=== PATIENT | female | born 1995 | race Asian ===

== ENCOUNTER 2018-11-22 13:45 | Emergency (ER) | payer MEDICAID ==
[~2018-11-22] VITALS: Ht 160 cm; Wt 106.6 kg
[2018-11-22 15:45] VITALS: BP 123/80
--- NOTE | 2018-11-22 16:45 | NUR ---
PT AMB TO ER BED 11
--- NOTE | 2018-11-22 16:58 | NUR ---
PATIENT PRESENTS TO ED WITH C/O HACKING DRY COUGH >2 WKS, NASAL/CHEST CONGESTION, SOB, ANTERIOR CHEST WALL PAIN SHARP WITH COUGH----FATIGUE . DENIES N/V/D; SKIN IS PINK/WARM/DRY; AAOX4 WITH EVEN AND STEADY GAIT; LUNGS CLEAR BL; HR EVEN AND REGULAR; PATIENT STATES PAIN OF 6/10 AT THIS TIME; VSS; PATIENT POSITIONED FOR COMFORT; HOB ELEVATED; BEDRAILS UP X2; BED DOWN. ER MD MADE AWARE OF PT STATUS.
[2018-11-22] MEDS ORDERED: ALBUTEROL SULFATE/IPRATROPIU 3 ML SOL IH ONE ×2 (17:00→17:35)
[2018-11-22] MEDS ORDERED: DEXAMETHASONE 10 MG/ML VIAL IM ONE (17:35)
--- NOTE | 2018-11-22 17:50 | NUR ---
2nd breathing tx completed---pt admits breathing a easier and less of a cough heard. will continue to observe for any changes
[2018-11-22 18:06] VITALS: BP 121/87
--- NOTE | 2018-11-22 18:10 | NUR ---
Patient discharged with v/s stable. Written and verbal after care instructions given and explained. Patient alert, oriented and verbalized understanding of instructions. Ambulatory with steady gait. All questions addressed prior to discharge. ID band removed. Patient advised to follow up with PMD. Rx of medrol,albuterol,promethazine given. Patient educated on indication of medication including possible reaction and side effects. Opportunity to ask questions provided and answered.
== END 2018-11-22 18:10 | disposition home or self-care (01) ==
LOC: MED 13:45
DX: J45.901 Unspecified asthma with (acute) exacerbation (principal)
CPT/HCPCS: 81002; 81025; 94640; 96372; 99284; J1100; J7620

== ENCOUNTER 2019-01-22 14:58 | Emergency (ER) | payer MEDICAID ==
[~2019-01-22] VITALS: Ht 162.6 cm; Wt 100.7 kg
--- NOTE | 2019-01-22 15:00 | NUR ---
PT C/O SOB S/P DIAGNOSED WITH BRONCHITIS TODAY AT AND WAS SENT HERE FOR BREATHING TREATMENTS. ON EXAM PT IS TACHYPNEIC, WHEEZING ON EXPIRATION HEARD THROUGHOUT BILAT LUNG CRUZ, 96% ON RA. HX OF ASTHMA BUT DOESN'T TAKE MEDICATIONS REGULARLY. SINUS TACH ON MONITOR WITH NO ECTOPY. DENIES CP/NVD/PAIN AT THIS TIME. PLACED IN GOWN, BED LOCKED/LOW POSITION, WILL CONTINUE TO MONITOR CLOSELY.
[2019-01-22 15:01] VITALS: BP 124/74
--- NOTE | 2019-01-22 15:01 | NUR ---
PT TO ER BED 4
--- NOTE | 2019-01-22 15:05 | NUR ---
DR. CHARLES AT BEDSIDE
[2019-01-22] MEDS ORDERED: ALBUTEROL SULFATE/IPRATROPIU 3 ML SOL IH ONE ×2 (15:10→16:05)
--- NOTE | 2019-01-22 15:34 | NUR ---
ADMITTING DX: SOB HX: ASTHMA C/O SOB VERBALLY RESPONSIVE EDUCATION PROVIDED TO PATIENT WITH ACKNOWLEDGEMENT ON [facility] THERAPY RESPIRATORY DRUG AND PEAK FLOW METER FOREMENTIONED GIVEN ORDERED ENCOURAGED PATIENT FOR INTERMITTENT FOR DEEP BREATHING DURING THERAPY TOLERATED WELL WITHOUT INCIDENT PEAK FLOW: before 180 l/m after 200 l/m
[2019-01-22] MEDS ORDERED: methylPREDNISolone SS 125 MG in WATER STERILE 2 ML IM ONE (16:05)
--- NOTE | 2019-01-22 16:08 | NUR ---
FOLLOW UP [facility] THERAPY AND RESPRATORY DRUG GIVEN ORDERED ENCOURAGED PATIENT FOR INTERMITTENT DEEP BREATHING DURING THERAPY TOLERATED WELL WITHOUT INCIDENT PAEK FLOW METER: before 220 l/m after 270 l/m
[2019-01-22] MEDS ORDERED: ACETAMIN/CODEINE 120/12MG-5ML 5 ML UDC PO ONE (16:30)
[2019-01-22 17:04] VITALS: BP 129/75
--- NOTE | 2019-01-22 17:04 | NUR ---
Patient discharged with v/s stable. Written and verbal after care instructions given and explained. Patient alert, oriented and verbalized understanding of instructions. Ambulatory with steady gait. All questions addressed prior to discharge. ID band removed. Patient advised to follow up with PMD. Rx of GUAIATUSSIN, ALBUTEROL AEROSOL, PREDNISONE given. Patient educated on indication of medication including possible reaction and side effects. Opportunity to ask questions provided and answered.
== END 2019-01-22 17:04 | disposition home or self-care (01) ==
LOC: MED 14:58
DX: J45.901 Unspecified asthma with (acute) exacerbation (principal); J20.9 Acute bronchitis, unspecified; F17.210 Nicotine dependence, cigarettes, uncomplicated; Z71.6 Tobacco abuse counseling
CPT/HCPCS: 71045; 94640; 96372; 99284; J2930; J7620; Q0092

== ENCOUNTER 2019-03-21 22:18 | Emergency (ER) | payer MEDICAID ==
[~2019-03-21] VITALS: Ht 160 cm; Wt 95.3 kg
--- NOTE | 2019-03-21 22:22 | NUR ---
PT BIBA TO BED 07.
--- NOTE | 2019-03-21 22:22 | NUR ---
47/M BIBA FROM HOME, C/O SUDDEN ONSET ASTHMA EXACERBATION, X30 MINS. PT RECEIVED ALBUTEROL AND ATROVENT BREATHING TX WITH RELIEF. PT REPORTS COUGH ALL DAY, AND EPISODE OF VOMITING FROM COUGHING. DENIES FEVER. PT DENIES CP, SOB, N/V AT THIS TIME. PT ARRIVES TO ED, AOX4, SKIN NORMAL WARM AND DRY, SPO2 97% ON RA, RR 16 EVEN AND UNLABORED. LUNG SOUNDS WITH MILD WHEEZE BL. HR 120 EVEN AND TACHYCARDIA, ST ON MONITOR. DR FREEMAN MADE AWARE. HX ASTHMA RX NONCOMPLIANT
[2019-03-21 22:24] VITALS: BP 119/77
[2019-03-21] MEDS ORDERED: predniSONE 20 MG TAB PO ONE (22:25)
--- NOTE | 2019-03-21 23:15 | NUR ---
PT LAYING IN BED HIGH GODOY'S, SPO2 95% ON RA, RR 28 EVEN AND UNLABORED. DENIES SOB, REPORTS IMPROVEMENT IN SYMPTOMS. LUNG SOUNDS WITH MILD WHEEZING. DR FREEMAN MADE AWARE. ALL NEEDS MET.
--- NOTE | 2019-03-22 01:05 | NUR ---
DR FREEMAN AT BEDSIDE
--- NOTE | 2019-03-22 01:11 | NUR ---
PT LAYING IN BED, SPO2 95% ON RA, RR 16 EVEN AND UNLABORED. DENIES ANY PAIN. DENIES SOB. ALL NEEDS MET.
[2019-03-22 01:15] VITALS: BP 114/78
--- NOTE | 2019-03-22 01:16 | NUR ---
Patient discharged with v/s stable. Written and verbal after care instructions given and explained. Patient alert, oriented and verbalized understanding of instructions. Ambulatory with steady gait. All questions addressed prior to discharge. ID band removed. Patient advised to follow up with PMD. Rx of ALBUTEROLD INHALER, PREDNISONE given. Patient educated on indication of medication including possible reaction and side effects. Opportunity to ask questions provided and answered.
== END 2019-03-22 01:15 | disposition home or self-care (01) ==
LOC: MED 22:18
DX: J45.901 Unspecified asthma with (acute) exacerbation (principal)
CPT/HCPCS: 99283; J7512

== ENCOUNTER 2019-05-07 20:51 | Emergency (ER) | payer MEDICAID ==
[~2019-05-07] VITALS: Ht 160 cm; Wt 102.5 kg
[2019-05-07 20:55] VITALS: BP 137/86
--- NOTE | 2019-05-07 20:55 | NUR ---
TO BED # 10 AMBULATORY
--- NOTE | 2019-05-07 21:05 | NUR ---
23 YO F BIB SELF PRESENTS TO ED C/O SOB X 4 HOURS. PT STATES SHE HAS HX OF ASTHMA AND RAN OUT OF HER INHALER. ALSO C/O 8/10 CHEST DISCOMFORT. -- PT AWAKE, ALERT, CALM, COOPERATIVE. APPEARS UNCOMFORTABLE. ANSWERS QUESTIONS APPROPRIATELY. BEHAVIOR AGE APPROPRIATE. -- SKIN PINK, WARM, DRY. INCREASED WOB NOTED. SPO2: 92% ON RA. EXPIRATORY WHEEZING HEARD THROUGHOUT LUNG CRUZ. PMH-- ASTHMA
[2019-05-07] MEDS ORDERED: ALBUTEROL SULFATE/IPRATROPIU 3 ML SOL IH ONE (21:20)
[2019-05-07] MEDS ORDERED: methylPREDNISolone SS 125 MG/2 ML VIAL IM ONE (21:20)
--- NOTE | 2019-05-07 21:30 | NUR ---
SENIOR AUDITOR AT BEDSIDE. BREATHING TX IN PROGRESS.
--- NOTE | 2019-05-07 22:05 | NUR ---
PT STATES SHE FEELS MUCH BETTER. SKIN PINK, WARM, DRY. BREATHING EVEN, UNLABORED. SPO2 96% ON RA. DENIES PAIN AT THIS TIME.
[2019-05-07 22:10] VITALS: BP 135/81
--- NOTE | 2019-05-07 22:10 | NUR ---
Patient discharged with v/s stable. Written and verbal after care instructions given and explained. Patient alert, oriented and verbalized understanding of instructions. Ambulatory with steady gait. All questions addressed prior to discharge. ID band removed. Patient advised to follow up with PMD. Rx of Prednisone and Albuterol given. Patient educated on indication of medication including possible reaction and side effects. Opportunity to ask questions provided and answered.
== END 2019-05-07 22:10 | disposition home or self-care (01) ==
LOC: MED 20:51
DX: J45.901 Unspecified asthma with (acute) exacerbation (principal)
CPT/HCPCS: 96372; 99283; J2930; J7620; 94640

== ENCOUNTER 2019-06-28 01:37 | Emergency (ER) | payer MEDICAID ==
[~2019-06-28] VITALS: Ht 162.6 cm; Wt 99.8 kg
[2019-06-28 01:39] VITALS: BP 113/96
--- NOTE | 2019-06-28 01:40 | NUR ---
PT AMBULATED TO ER BED 5
[2019-06-28] MEDS ORDERED: ALBUTEROL SULFATE/IPRATROPIU 3 ML SOL IH ONE (01:45)
[2019-06-28] MEDS ORDERED: methylPREDNISolone SS 125 MG/2 ML VIAL IVP ONE (01:45)
[2019-06-28] MEDS ORDERED: MAG SULF 2000 MG/WATER PREMIX 50 ML IV ONE (01:45)
--- NOTE | 2019-06-28 01:45 | NUR ---
23Y FEMALE, PRESENTED TO ED C/O SOB WITH CHEST TIGHTNESS THAT STARTED ABOUT 45MIN AGO. PT REPORTED RUNNING OUT OF ALBUTEROL INHALER, PT WITH HX OF ASTHMA. PT AAOX4, RR EVEN NOTED BILATERAL LUNG WHEEZING, GCS 15, EDMD MADE AWARE, WILL CONTINUE TO MONITOR CLOSELY. BED LOCKED IN LOWEST POSITION, SIDERAIL UPX1.
[2019-06-28 03:29] VITALS: BP 110/89
--- NOTE | 2019-06-28 03:29 | NUR ---
Dr. Pelayo discharged patient with v/s stable, written and verbal after care instructions given and explained, patient ambulatory with steady gait. All questions addressed prior to discharge. ID band removed. Patient advised to follow up with PMD. Rx of PREDNISONE 20MG AND ALBUTEROL 90MCG/ACTUATION INHALATION AEROSOL given. Patient educated on indication of medication including possible reaction and side effects. Opportunity to ask questions provided and answered.
== END 2019-06-28 03:29 | disposition home or self-care (01) ==
LOC: MED 01:37
DX: J45.909 Unspecified asthma, uncomplicated (principal)
CPT/HCPCS: 94640; 94760; 96365; 96375; 99283; J2930; J3475; J7620

== ENCOUNTER 2019-08-01 00:41 | Emergency (ER) | payer MEDICAID ==
[~2019-08-01] VITALS: Ht 162.6 cm; Wt 103.9 kg
[2019-08-01 00:44] VITALS: BP 136/81
--- NOTE | 2019-08-01 00:49 | NUR ---
PT AMBULATED TO BED #7
[2019-08-01] MEDS ORDERED: ALBUTEROL SULFATE/IPRATROPIU 3 ML SOL IH ONE (00:55)
[2019-08-01] MEDS ORDERED: methylPREDNISolone SS 125 MG/2 ML VIAL IM ONE (00:55)
--- NOTE | 2019-08-01 00:55 | NUR ---
23 Y/O F PRESENTS TO ER C/O DRY COUGH AND SHORTNESS OF BREATH SINCE YESTERDAY. BREATHING WORSENED SINCE 5PM LAST NIGHT. PT HAS DIFFUSE WHEEZING THROUGHOUT. RESPIRATIONS ARE EVEN AND LABORED. 02 SATURATION AT 92% ON RA. PT ALSO HAS DRY COUGH. PT PLACED IN HIGH FOWLERS POSITION. PT PLACED ON 2L 02 VIA NASAL CANNULA. PT HAS RX FOR INHALERS BUT RAN OUT. PAIN LEVEL 8/10, TO BACK AND CHEST DURING COUGHING. ALLERGIES: NKA MED HX: ASTHMA. HOB ELEVATED 90 DEGREES, BED IN LOWEST POSITION, BED RAIL UP X1. ERMD MADE AWARE OF PT STATUS.
--- NOTE | 2019-08-01 01:00 | NUR ---
RT AT BEDSIDE FOR BREATHING TX
[2019-08-01] MEDS ORDERED: BUDESONIDE 0.5 MG/2 ML NEBU INH ONE (01:10)
[2019-08-01] MEDS ORDERED: ALBUTEROL 0.083% 2.5 MG/3 ML NEBU INH ONE (01:10)
[2019-08-01] MEDS ORDERED: IBUPROFEN 600 MG TAB PO ONE (01:25)
--- NOTE | 2019-08-01 02:00 | NUR ---
PT RESTING IN BED, STABLE. POSITIONED IN HIGH FOWLERS POSITION. 95% ON RA. WILL CONTINUE TO MONITOR.
--- NOTE | 2019-08-01 02:29 | NUR ---
RT AT BEDSIDE FOR SECOND BREATHING TX
[2019-08-01 03:08] VITALS: BP 121/78
--- NOTE | 2019-08-01 03:08 | NUR ---
Patient discharged with v/s stable. Written and verbal after care instructions given and explained. Patient alert, oriented and verbalized understanding of instructions. Ambulatory with steady gait. All questions addressed prior to discharge. ID band removed. Patient advised to follow up with PMD. Rx of ALBUTEROL, PREDNISONE 20 MG given. Patient educated on indication of medication including possible reaction and side effects. Opportunity to ask questions provided and answered.
== END 2019-08-01 03:08 | disposition home or self-care (01) ==
LOC: MED 00:41
DX: J45.901 Unspecified asthma with (acute) exacerbation (principal); F17.200 Nicotine dependence, unspecified, uncomplicated; Z71.6 Tobacco abuse counseling
CPT/HCPCS: 94640; 96372; 99285; J2930; J7613; J7620; J7626; 94644

== ENCOUNTER 2019-10-11 07:53 | Emergency (ER) | payer MEDICAID ==
[~2019-10-11] VITALS: Ht 160 cm; Wt 101.2 kg
[2019-10-11 08:05] VITALS: BP 123/85
--- NOTE | 2019-10-11 08:05 | NUR ---
PATIENT PRESENTS TO ED WITH C/O SOB AND CONGESTED SINCE THIS MORNING, WHEEZING LUNG SOUNDS KENNY. HX OF ASTHMA. DENIES PAIN, VSS; PATIENT POSITIONED FOR COMFORT; HOB ELEVATED; BEDRAILS UP X2; BED DOWN. ER MD MADE AWARE OF PT STATUS.
--- NOTE | 2019-10-11 08:05 | NUR ---
AMBULATED TO ER BED 3
--- NOTE | 2019-10-11 08:10 | NUR ---
Patient being evaluated by DR. BAZAN at bedside.
[2019-10-11] MEDS ORDERED: IPRATROPIUM 0.02% 0.5 MG/2.5 ML NEBU INH ONE (08:20)
[2019-10-11] MEDS ORDERED: ALBUTEROL 0.083% 2.5 MG/3 ML NEBU INH ONE (08:20)
[2019-10-11] MEDS ORDERED: predniSONE 20 MG TAB PO ONE (08:20)
--- NOTE | 2019-10-11 08:24 | NUR ---
RT AT BEDSIDE GIVING BREATHING TREATMENT
[2019-10-11 09:05] VITALS: BP 123/85
--- NOTE | 2019-10-11 09:05 | NUR ---
Patient discharged TO HOME. Written and verbal after care instructions given and explained. All questions addressed prior to discharge. ID band removed. Patient advised to follow up with PMD. Rx of PREDNISONE, ALBUTEROL given. Patient educated on indication of medication including possible reaction and side effects. Opportunity to ask questions provided and answered.
== END 2019-10-11 09:05 | disposition home or self-care (01) ==
LOC: MED 07:53
DX: J45.901 Unspecified asthma with (acute) exacerbation (principal); F17.210 Nicotine dependence, cigarettes, uncomplicated; Z71.6 Tobacco abuse counseling
CPT/HCPCS: 94640; 99283; J7512; J7613; J7644

== ENCOUNTER 2019-11-05 20:29 | Emergency (ER) | payer MEDICAID ==
[~2019-11-05] VITALS: Ht 160 cm; Wt 98.7 kg
[2019-11-05 20:40] VITALS: BP 117/71
--- NOTE | 2019-11-05 20:40 | NUR ---
TO BED # 08 AMBULATORY
--- NOTE | 2019-11-05 20:45 | NUR ---
C/O SOB X 4HRS. LUNG SOUNDS WHEEZING ALL THORUGHOUT. SPO2 99% RA.NO RESO DISTRESS NOTED. NO USE OF ACCESSORY MUSCLE. VSS. A& O X4. STEADY GAIT. PT STATES SHE RAN OUT OF HER ALBUTEROL 2 DAYS AGO. PRODUCTIVE COUGH AND RUNNY NOSE PRESENT. AIRWAY PATENT AND CLEAR. NKA. PMH: ASTHMA.
--- NOTE | 2019-11-05 20:45 | NUR ---
RT AT BEDSIDE.
[2019-11-05] MEDS ORDERED: ALBUTEROL SULFATE/IPRATROPIU 3 ML SOL IH ONE (21:00)
[2019-11-05] MEDS ORDERED: ALBUTEROL 0.083% 2.5 MG/3 ML NEBU INH ONE (21:00)
[2019-11-05 21:47] VITALS: BP 117/71
[2019-11-05] MEDS ORDERED: predniSONE 20 MG TAB PO ONE (21:55)
--- NOTE | 2019-11-05 22:25 | NUR ---
Patient discharged with v/s stable. Written and verbal after care instructions given and explained BY DR. MENDIETA. Patient alert, oriented and verbalized understanding of instructions. Ambulatory with steady gait. All questions addressed prior to discharge. ID band removed. Patient advised to follow up with PMD. Rx of ALBUERTOL INHALER,AND PREDNISONE given. Patient educated on indication of medication including possible reaction and side effects. Opportunity to ask questions provided and answered.
== END 2019-11-05 22:24 | disposition home or self-care (01) ==
LOC: MED 20:29
DX: J45.901 Unspecified asthma with (acute) exacerbation (principal)
CPT/HCPCS: 94640; 99283; J7512; J7613; J7620

== ENCOUNTER 2020-06-09 18:55 | Emergency (ER) | payer MEDICAID ==
[~2020-06-09] VITALS: Ht 160 cm; Wt 93.0 kg
[2020-06-09 19:00] VITALS: BP 144/91
--- NOTE | 2020-06-09 19:00 | NUR ---
PT AMBULATED TO BED 5 WITH STEADY GAIT.
--- NOTE | 2020-06-09 19:15 | NUR ---
PT HAS HISTORY OF ASTHNA, STARTED HAVING WHEEZING THIS MORNING USED HER INHALER WITH NO RELIEF. C/O TIGHTNESS IN CHEST. WHEEZES NOTED THROUGHOUT, NONPRODUCTIVE COUGH. O2 SAT 97% ON ROOM AIR. AFEBRILE. BED IN LOWEST POSITION AND SIDERAIL UP X 1. PT SITTING UPRIGHT FOR COMFORT. NKA HX - ASTHMA
[2020-06-09] MEDS ORDERED: ALBUTEROL SULFATE/IPRATROPIU 3 ML SOL IH ONE (19:20)
[2020-06-09] MEDS ORDERED: predniSONE 20 MG TAB PO ONE (19:20)
--- NOTE | 2020-06-09 19:22 | NUR ---
RT AT BEDSIDE.
--- NOTE | 2020-06-09 19:31 | NUR ---
PT WAS GIVEN DUO NEB HHN VIA MASK PRE VITALS f 18 SPO2 98% HR 112 POST VITALS 100% HR 118 f16 PT HAD WHZ W/ IMPROVED AERATION AFTER HHN Tx
--- NOTE | 2020-06-09 19:45 | NUR ---
PT STATES SHE FEELS BETTER AFTER BREATHING TREATMENT . O2 SAT 99% NO LONGER COUGHING
[2020-06-09 20:48] VITALS: BP 138/94
--- NOTE | 2020-06-09 20:49 | NUR ---
Patient discharged with v/s stable. Written and verbal after care instructions given and explained. Patient alert, oriented and verbalized understanding of instructions. Ambulatory with steady gait. All questions addressed prior to discharge. ID band removed. Patient advised to follow up with PMD. Rx of PREDNISONE AND ALBUTEROL INHALER given. Patient educated on indication of medication including possible reaction and side effects. Opportunity to ask questions provided and answered.
== END 2020-06-09 20:49 | disposition home or self-care (01) ==
LOC: MED 18:55
DX: J45.901 Unspecified asthma with (acute) exacerbation (principal)
CPT/HCPCS: 99282; J7512

== ENCOUNTER 2020-12-03 04:15 | Emergency (ER) | payer MEDICAID ==
[~2020-12-03] VITALS: Ht 162.6 cm; Wt 106.1 kg
[2020-12-03 04:20] VITALS: BP 129/74
--- NOTE | 2020-12-03 04:21 | NUR ---
PT AMBULATED TO BED #6
--- NOTE | 2020-12-03 04:50 | NUR ---
BLOOD DRAWN AND WALKED TO LAB.
--- NOTE | 2020-12-03 05:07 | NUR ---
ULTRASOUND AT BEDSIDE
[2020-12-03 05:08] LABS: APPEARANCE,URINE CLEAR (CLEAR); BILIRUBIN,URINE NEGATIVE (NEGATIVE); BLOOD, URINE 2+ (NEGATIVE); COLOR,URINE YELLOW (YELLOW); LEUKOCYTE ESTERASE ,URINE TRACE (NEGATIVE); NITRITE, URINE NEGATIVE (NEGATIVE); PH,URINE 5.5 (5.0-9.0); UGLUCOSE TRACE (NEGATIVE)
[2020-12-03 05:11] LABS: RED BLOOD CELL COUNT(AUTO) 5.36 MIL/uL (4.20-5.40)
[2020-12-03 05:16] LABS: RBC,URINE 0-5 /HPF (0-5)
[2020-12-03 05:17] LABS: BASOPHILS # (AUTO) 0.1 K/uL (0.00-0.22); BASOPHILS % (AUTO) 0.5 % (0.0-2.0); EOSINOPHILS # (AUTO) 0.4 K/uL (0-0.4); EOSINOPHILS % (AUTO) 3.8 % (0.0-4.0); HEMOGLOBIN 15.1 g/dL (12.0-16.0); LYMPHOCYTES # (AUTO) 2.9 K/uL (2.5-16.5); LYMPHOCYTES % (AUTO) 24.7 % (20.5-51.1); MEAN CORPUSCULAR HEMOGLOBIN 28 pg (27-31); MEAN CORPUSCULAR HGB CONC 34 g/dL (33-37); MONOCYTES # (AUTO) 0.6 K/uL (0.8-1.0); MONOCYTES % (AUTO) 5.2 % (1.7-9.3); NEUTROPHILS # (AUTO) 7.7 K/uL (1.8-7.7); NEUTROPHILS % (AUTO) 65.8 % (42.2-75.2); PLATELET COUNT (AUTO) 264 K/uL (140-450); RED CELL DISTRIBUTION WIDTH 13.7 % (11.6-13.7); WHITE BLOOD COUNT (AUTO) 11.7 K/uL (4.8-10.8)
[2020-12-03] MEDS ORDERED: NITR100C7 PO (06:32)
[2020-12-03 06:50] VITALS: BP 129/74
--- NOTE | 2020-12-03 06:50 | NUR ---
EXAM RESULTS RETURNED REVIEWED.Patient discharged with v/s stable. Written and verbal after care instructions given and explained. Patient alert, oriented and verbalized understanding of instructions. Ambulatory with steady gait. All questions addressed prior to discharge. ID band removed. Patient advised to follow up with PMD. Rx of MACROBID given. Patient educated on indication of medication including possible reaction and side effects. Opportunity to ask questions provided and answered. COPIES OF LABS IN POSESSION
== END 2020-12-03 06:50 | disposition home or self-care (01) ==
LOC: MED 04:15
DX: O20.0 Threatened abortion (principal); O23.41 Unspecified infection of urinary tract in pregnancy, first trimester; J45.909 Unspecified asthma, uncomplicated; Z3A.01 Less than 8 weeks gestation of pregnancy; Z79.899 Other long term (current) drug therapy
CPT/HCPCS: 36415; 76817; 81001; 81025; 84702; 85025; 86900; 86901; 87086; 99284